=== PATIENT | female | born 1955 | race Caucasian/White ===

== ENCOUNTER → 2019-08-11 13:27 | Outpatient (BNVA) | payer MEDICARE, OTHER, SELFPAY | PROVIDERS: PCP Nurse Practitioner Family; Visit Provider Internal Medicine Rheumatology | DX: M06.09 Rheumatoid arthritis without rheumatoid factor, multiple sites (principal); Z79.899 Other long term (current) drug therapy; M19.90 Unspecified osteoarthritis, unspecified site; J44.9 Chronic obstructive pulmonary disease, unspecified; M47.812 Spondylosis without myelopathy or radiculopathy, cervical region; M47.816 Spondylosis without myelopathy or radiculopathy, lumbar region; Z87.891 Personal history of nicotine dependence | CPT/HCPCS: 99214 ==

== ENCOUNTER 2019-12-12 08:57 | Outpatient (CLI) | payer MEDICARE, OTHER, SELFPAY ==
--- NOTE | 2019-12-12 09:07 | MM_ITS ---
WS: [id number] BILATERAL DIGITAL SCREENING MAMMOGRAPHY WITH CAD CLINICAL INFORMATION: SCREEN HISTORY: Screening mammogram. No current complaints. COMPARISON: [id number] TECHNIQUE: Bilateral CC and MLO views. FINDINGS: The breasts are composed of heterogeneous fibroglandular density tissue, which can limit the detectio n of small underlying mass lesions. No suspicious mass, asymmetry, calcifications, or architectural d istortion. No evidence of malignancy. MM/[place] [id number] IMPRESSION: BI-RADS: 1-Negative FOLLOW UP: 1 Year Follow-up Recommend return to annual screening mammography.
== END 2019-12-12 08:58 | disposition home or self-care (01) ==
LOC: RADSHAW 09:02
PROVIDERS: PCP Nurse Practitioner Family; Visit Provider Nurse Practitioner Family
DX: Z12.31 Encounter for screening mammogram for malignant neoplasm of breast (principal)
CPT/HCPCS: 77067

== ENCOUNTER → 2020-01-09 10:47 | Outpatient (BNVA) | payer MEDICARE, OTHER, SELFPAY | PROVIDERS: PCP Nurse Practitioner Family; Visit Provider Internal Medicine Rheumatology | DX: M06.09 Rheumatoid arthritis without rheumatoid factor, multiple sites (principal); Z79.899 Other long term (current) drug therapy; Z78.0 Asymptomatic menopausal state; J44.9 Chronic obstructive pulmonary disease, unspecified; Z87.891 Personal history of nicotine dependence | CPT/HCPCS: 99214 ==

== ENCOUNTER → 2020-04-02 13:58 | Outpatient (BNVA) | payer MEDICARE, OTHER, SELFPAY | PROVIDERS: PCP Nurse Practitioner Family; Visit Provider Nurse Practitioner Family | DX: Z20.828 Contact with and (suspected) exposure to other viral communicable diseases (principal); J06.9 Acute upper respiratory infection, unspecified | CPT/HCPCS: 87635 ==

== ENCOUNTER → 2020-04-17 09:01 | Outpatient (BNVA) | payer OTHER, SELFPAY | PROVIDERS: PCP Nurse Practitioner Family; Visit Provider Internal Medicine Rheumatology | DX: M06.09 Rheumatoid arthritis without rheumatoid factor, multiple sites (principal); Z79.899 Other long term (current) drug therapy; J44.9 Chronic obstructive pulmonary disease, unspecified; K21.9 Gastro-esophageal reflux disease without esophagitis; Z87.891 Personal history of nicotine dependence | CPT/HCPCS: 99214 ==

== ENCOUNTER → 2020-07-30 08:49 | Outpatient (BNVA) | payer OTHER, SELFPAY | PROVIDERS: PCP Nurse Practitioner Family; Visit Provider Internal Medicine Rheumatology | DX: M06.09 Rheumatoid arthritis without rheumatoid factor, multiple sites (principal); Z79.899 Other long term (current) drug therapy; K21.9 Gastro-esophageal reflux disease without esophagitis; M15.9 Polyosteoarthritis, unspecified; M47.892 Other spondylosis, cervical region; M47.896 Other spondylosis, lumbar region; J44.9 Chronic obstructive pulmonary disease, unspecified; Z87.891 Personal history of nicotine dependence | CPT/HCPCS: 99214 ==

== ENCOUNTER → 2020-11-28 08:49 | Outpatient (BNVA) | payer OTHER, SELFPAY | PROVIDERS: PCP Nurse Practitioner Family; Visit Provider Internal Medicine Rheumatology | DX: M06.09 Rheumatoid arthritis without rheumatoid factor, multiple sites (principal); M15.9 Polyosteoarthritis, unspecified; M47.892 Other spondylosis, cervical region; M47.896 Other spondylosis, lumbar region; Z79.899 Other long term (current) drug therapy; K21.9 Gastro-esophageal reflux disease without esophagitis; J44.9 Chronic obstructive pulmonary disease, unspecified; Z71.89 Other specified counseling; Z87.891 Personal history of nicotine dependence | CPT/HCPCS: 99214 ==

== ENCOUNTER → 2020-12-18 09:30 | Outpatient (BNVA) | payer SELFPAY | PROVIDERS: PCP Dermatology; Visit Provider Dermatology | DX: Z01.89 Encounter for other specified special examinations (principal) ==

== ENCOUNTER 2020-12-19 09:55 | Outpatient (CLI) | payer MEDICARE, OTHER, SELFPAY ==
--- NOTE | 2020-12-19 10:03 | MM_ITS ---
WS: [id number] Bilateral screening mammograms, 12/19/2020 Comparison: 12/12/2019, 12/03/2018, 10/20/2017, 09/28/2015, 09/02/2013, 08/27/2012, 07/25/2011, 07/17/2010, 2009, 11/08/2008, 09/26/2014, 09/12/2014, 09/02/2013, 08/27/2012, 07/25/2011, 07/17/2010, 07/06/2009, 11/08/2008 , 08/10/2008, 07/19/2008, 07/04/2008, 06/04/2007, 12/29/2005. Clinical Data: SCREENING Findings: The breast parenchymal pattern shows heterogeneous density. No spiculated masses or clustered calcif ications are seen. There are no secondary signs of carcinoma. MM/[place] [id number] Impression: 1. Negative bilateral mammogram unchanged. 2. Recommend annual screening mammograms. BIRADS: 1-Negative FOLLOW UP: 1 Year Follow-up The CAD broadcast checker was used.
== END 2020-12-19 09:56 | disposition home or self-care (01) ==
LOC: RADSHAW 10:01
PROVIDERS: PCP Nurse Practitioner Family; Visit Provider Nurse Practitioner Family
DX: Z12.31 Encounter for screening mammogram for malignant neoplasm of breast (principal)
CPT/HCPCS: 77067

== ENCOUNTER → 2021-04-01 09:33 | Outpatient (BNVA) | payer MEDICARE, OTHER, SELFPAY | PROVIDERS: PCP Nurse Practitioner Family; Visit Provider Internal Medicine Rheumatology | DX: M06.09 Rheumatoid arthritis without rheumatoid factor, multiple sites (principal); Z79.899 Other long term (current) drug therapy; M15.9 Polyosteoarthritis, unspecified; K21.9 Gastro-esophageal reflux disease without esophagitis; J44.9 Chronic obstructive pulmonary disease, unspecified; Z71.89 Other specified counseling; Z87.891 Personal history of nicotine dependence | CPT/HCPCS: 99214 ==

== ENCOUNTER → 2021-07-12 09:13 | Outpatient (BNVA) | payer MEDICARE, OTHER, SELFPAY | PROVIDERS: PCP Nurse Practitioner Family; Visit Provider Internal Medicine | DX: I49.3 Ventricular premature depolarization (principal); E78.2 Mixed hyperlipidemia; I10 Essential (primary) hypertension; Z87.891 Personal history of nicotine dependence | CPT/HCPCS: 99213; 99214 ==

== ENCOUNTER → 2021-07-19 09:00 | Outpatient (BNVA) | payer MEDICARE, OTHER, SELFPAY | PROVIDERS: PCP Nurse Practitioner Family; Visit Provider Internal Medicine Rheumatology | DX: M06.09 Rheumatoid arthritis without rheumatoid factor, multiple sites (principal); Z79.899 Other long term (current) drug therapy; M15.9 Polyosteoarthritis, unspecified; K21.9 Gastro-esophageal reflux disease without esophagitis; J44.9 Chronic obstructive pulmonary disease, unspecified; Z71.89 Other specified counseling | CPT/HCPCS: 99214 ==

== ENCOUNTER → 2021-11-14 09:22 | Outpatient (BNVA) | payer MEDICARE, OTHER, SELFPAY | PROVIDERS: PCP Nurse Practitioner Family; Visit Provider Internal Medicine Rheumatology | DX: M06.09 Rheumatoid arthritis without rheumatoid factor, multiple sites (principal); Z79.899 Other long term (current) drug therapy; Z71.89 Other specified counseling; M15.9 Polyosteoarthritis, unspecified; M47.892 Other spondylosis, cervical region; M47.896 Other spondylosis, lumbar region; K21.9 Gastro-esophageal reflux disease without esophagitis; J44.9 Chronic obstructive pulmonary disease, unspecified | CPT/HCPCS: 99214 ==

== ENCOUNTER 2022-01-31 11:23 | Outpatient (CLI) | payer MEDICARE, OTHER, SELFPAY ==
--- NOTE | 2022-01-31 11:31 | MM_ITS ---
WS: [email or web address] VIEWS: MLO and CC views both breasts. 3D digital tomosynthesis is also included in this exam. Comparison made with prior exam of 09/28/2015, 10/20/2017, 12/03/2018, 12/12/2019, 12/19/2020.. Findings: There was no sign of mass, architectural distortion or suspicious calcification in either breast. Sc attered fibroglandular densities MM/[place] [id number] Impression: BI-RADS: 2-Benign FOLLOW-UP: 1 Year Follow-up This mammogram was also analyzed by the Computer Aided Detection System R2 Imag e Art Tracer.
== END 2022-01-31 11:24 | disposition home or self-care (01) ==
LOC: RAD 11:23
PROVIDERS: PCP Nurse Practitioner Family; Visit Provider Nurse Practitioner Family
DX: Z12.31 Encounter for screening mammogram for malignant neoplasm of breast (principal)
CPT/HCPCS: 77063; 77067

== ENCOUNTER → 2022-02-18 12:57 | Outpatient (BNVA) | payer MEDICARE, SELFPAY | PROVIDERS: PCP Nurse Practitioner Family; Visit Provider Internal Medicine Rheumatology | DX: M06.09 Rheumatoid arthritis without rheumatoid factor, multiple sites (principal); Z79.899 Other long term (current) drug therapy; Z71.89 Other specified counseling; M15.9 Polyosteoarthritis, unspecified; K21.9 Gastro-esophageal reflux disease without esophagitis; J44.9 Chronic obstructive pulmonary disease, unspecified; M47.892 Other spondylosis, cervical region; M47.896 Other spondylosis, lumbar region | CPT/HCPCS: 99214 ==

== ENCOUNTER → 2022-05-28 13:20 | Outpatient (BNVA) | payer MEDICARE, SELFPAY | PROVIDERS: PCP Nurse Practitioner Family; Visit Provider Internal Medicine Rheumatology | DX: M06.09 Rheumatoid arthritis without rheumatoid factor, multiple sites (principal); Z79.899 Other long term (current) drug therapy; Z71.89 Other specified counseling; M47.892 Other spondylosis, cervical region; M47.896 Other spondylosis, lumbar region; K21.9 Gastro-esophageal reflux disease without esophagitis; K22.10 Ulcer of esophagus without bleeding | CPT/HCPCS: 99214 ==

== ENCOUNTER → 2022-09-03 12:55 | Outpatient (BNVA) | payer MEDICARE, SELFPAY | PROVIDERS: PCP Nurse Practitioner Family; Visit Provider Internal Medicine Rheumatology | DX: M06.09 Rheumatoid arthritis without rheumatoid factor, multiple sites (principal); Z71.89 Other specified counseling; Z79.899 Other long term (current) drug therapy | CPT/HCPCS: 99214 ==

== ENCOUNTER → 2022-11-11 12:35 | Outpatient (BNVA) | payer MEDICARE, SELFPAY | PROVIDERS: PCP Nurse Practitioner Family; Visit Provider Internal Medicine Cardiovascular Disease | DX: I49.3 Ventricular premature depolarization (principal); I10 Essential (primary) hypertension; E78.2 Mixed hyperlipidemia; Z87.891 Personal history of nicotine dependence | CPT/HCPCS: 99213 ==

== ENCOUNTER → 2022-12-17 13:14 | Outpatient (BNVA) | payer MEDICARE, SELFPAY | PROVIDERS: PCP Nurse Practitioner Family; Visit Provider Internal Medicine Rheumatology | DX: I49.3 Ventricular premature depolarization (principal); M06.09 Rheumatoid arthritis without rheumatoid factor, multiple sites; Z79.899 Other long term (current) drug therapy; Z71.89 Other specified counseling | CPT/HCPCS: 99214 ==

== ENCOUNTER 2023-02-17 13:30 | Outpatient (CLI) | payer MEDICARE, SELFPAY ==
--- NOTE | 2023-02-17 13:34 | MM_ITS ---
WS: [email or web address] BILATERAL 3D TOMOSYNTHESIS DIGITAL SCREENING MAMMOGRAPHY WITH CAD CLINICAL INFORMATION: SCREENING HISTORY: Screening mammogram. No current complaints. COMPARISON: 2021 TECHNIQUE: Bilateral CC and MLO views. FINDINGS: Scattered fibroglandular densities bilaterally. No suspicious focal mass, asymmetry, calcifications, or architectural distortion. No evidence of malignancy. IMPRESSION: MM/[place] [id number] BI-RADS: 1-Negative FOLLOW UP: 1 Year Follow-up Recommend return to annual screening mammography.
== END 2023-02-17 13:31 | disposition home or self-care (01) ==
LOC: RAD 13:30
PROVIDERS: PCP Nurse Practitioner Family; Visit Provider Nurse Practitioner Family
DX: Z12.31 Encounter for screening mammogram for malignant neoplasm of breast (principal)
CPT/HCPCS: 77063; 77067

== ENCOUNTER → 2023-04-15 14:15 | Outpatient (BNVA) | payer MEDICARE, SELFPAY | PROVIDERS: PCP Nurse Practitioner Family; Visit Provider Internal Medicine Rheumatology | DX: Z79.899 Other long term (current) drug therapy (principal); M06.09 Rheumatoid arthritis without rheumatoid factor, multiple sites; Z71.89 Other specified counseling | CPT/HCPCS: 99214 ==

== ENCOUNTER → 2023-11-03 14:15 | Outpatient (BNVA) | payer MEDICARE, SELFPAY | PROVIDERS: PCP Nurse Practitioner Family; Visit Provider Internal Medicine | DX: I49.3 Ventricular premature depolarization (principal); E78.2 Mixed hyperlipidemia; I10 Essential (primary) hypertension; Z87.891 Personal history of nicotine dependence | CPT/HCPCS: 99213 ==

== ENCOUNTER 2023-12-02 11:21 | Outpatient (CLI) | payer MEDICARE, SELFPAY ==
--- NOTE | 2023-12-02 11:15 | CT_ITS ---
WS: [email or web address] LDCT LUNG CANCER SCREENING HISTORY: Z87.891 - Personal history of nicotine dependence TECHNIQUE: Axial imaging performed from the apices to 1 cm below the costophrenic angles. Coronal and sagittal reformats are submitted with axial MIP series. All CT scans at [facility] use at least one of these dose optimization techniques: automated exposure control; mA and/or kV adjustment per patient size (includes targeted exams where dose is matched to clinical indication); or iterativ e reconstruction. DLP: 43.12 mGy.cm DIvol: Mean CTDIvol: 0.80 (mGy) COMPARISON: None available. Diagnostic quality: Satisfactory Lungs: Hyperexpanded lungs. Irregular nodule measuring 11 x 8 mm medial RIGHT upper lobe, best seen o n image 107 of series 4. Additional biapical pleural thickening. There is a more focal 5 mm nodule po sterior RIGHT apex. There are additional bilateral micronodules. RIGHT perifissural nodule. No endobr onchial lesions. Heart: Normal size heart with no pericardial effusion.. Other findings: On this unenhanced exam no adenopathy is identified. Hilar lymph nodes be difficult t o visualize. Absent or atrophic RIGHT thyroid. Small hiatal hernia. Increase in thoracic kyphosis. De generative spondylosis. CT/CT lung screening [id number] IMPRESSION: LUNG-RADS: 4A-Probably Suspicious FOLLOW UP: 3 Month LDCT OTHER FINDINGS (S MODIFIER): None.
== END 2023-12-02 11:22 | disposition home or self-care (01) ==
LOC: RAD 11:21
PROVIDERS: PCP Nurse Practitioner Family; Visit Provider Nurse Practitioner Family
DX: Z12.2 Encounter for screening for malignant neoplasm of respiratory organs (principal); Z87.891 Personal history of nicotine dependence; J98.4 Other disorders of lung; R91.8 Other nonspecific abnormal finding of lung field; M40.204 Unspecified kyphosis, thoracic region
CPT/HCPCS: 71271

== ENCOUNTER → 2024-01-25 11:15 | Outpatient (BNVA) | payer MEDICARE, SELFPAY | PROVIDERS: PCP Nurse Practitioner Family; Visit Provider Internal Medicine Rheumatology | DX: Z79.899 Other long term (current) drug therapy (principal); M06.09 Rheumatoid arthritis without rheumatoid factor, multiple sites; Z71.89 Other specified counseling | CPT/HCPCS: 99214 ==

== ENCOUNTER → 2024-03-09 13:06 | Outpatient (BNVA) | payer MEDICARE, SELFPAY | PROVIDERS: PCP Nurse Practitioner Family; Visit Provider Nurse Practitioner Family | DX: Z79.899 Other long term (current) drug therapy (principal) | CPT/HCPCS: 80307 ==

== ENCOUNTER 2024-03-31 13:40 | Outpatient (CLI) | payer MEDICARE, SELFPAY ==
--- NOTE | 2024-03-31 13:40 | MM_ITS ---
WS: [email or web address] BILATERAL SCREENING DIGITAL TOMOSYNTHESIS MAMMOGRAM WITH CAD HISTORY: Z12.39 - Encounter for other screening for malignant neop... COMPARISON: 02/17/2023, 01/31/2022 Bilateral CC and MLO views with tomosynthesis and synthetic mammography submitted. Computer aided det ection analyzed. Breast composition: There are scattered areas of fibroglandular density. No suspicious masses, microc alcifications or architectural distortion. MM/MM scr BI tomosynthesis [id number] IMPRESSION: BI-RADS: 1 - Negative. FOLLOW UP: 1 Year Follow-up
== END 2024-03-31 13:41 | disposition home or self-care (01) ==
PROVIDERS: PCP Nurse Practitioner Family; Visit Provider Nurse Practitioner Family
DX: Z12.31 Encounter for screening mammogram for malignant neoplasm of breast (principal); R92.323 Mammographic fibroglandular density, bilateral breasts
CPT/HCPCS: 77063; 77067

== ENCOUNTER 2024-04-19 09:30 | Outpatient (CLI) | payer MEDICARE, SELFPAY ==
--- NOTE | 2024-04-19 09:30 | CT_ITS ---
WS: [email or web address] CT chest w con* [id number] HISTORY: R91.1 - Solitary pulmonary nodule TECHNIQUE: Axial imaging performed through the thorax. Coronal and sagittal reformats are submitted. All CT scans at [facility] use at least one of these dose optimization techniques: automated exposure control; mA and/or kV adjustment per patient size (includes targeted exams where dose is mat ched to clinical indication); or iterative reconstruction. CONTRAST: Omnipaque 350; 100 mL IV. DLP: 204.74 mGy.cm COMPARISON: 12/02/2023 Lungs and central airway: Mild pulmonary hyperexpansion. There has been interval change in appearance of the lungs and nodules since 12/02/2023. Decrease in size and consolidation of the nodule described in the medial RIGHT upper lobe. Some of the nodules have resolved since the prior study and new nodul es have developed. There is a new cavitary nodule measuring 5 x 9 mm RIGHT upper lobe. New LEFT upper lobe pulmonary nodules measuring up to 6 mm. New tree-in-bud airspace disease inferior segment RIGHT upper lobe. Stable 3 mm nodule RIGHT lower lobe. New 6 mm nodule LEFT lung base. Pleura: Normal. No pleural effusion. Heart and pericardium: Normal size heart with no pericardial effusion. Mediastinum and enma: Enlarged RIGHT hilar lymph node 1.7 cm. There are a few smaller mediastinal and hilar lymph nodes. Asymmetric esophageal wall thickening at the level of the tracee. Vessels: Normal size aortic and pulmonary artery. No coronary artery calcifications. Chest wall and lower neck: No soft tissue masses. Upper abdomen: Small hiatal hernia. No adrenal mass. Visualized liver is normal. Osseous structures: Thoracic spondylosis. CT/CT chest w con* [id number] IMPRESSION: 1. Some the nodules described on the prior exam from 12/02/2023 have resolved wh ile others have improved. The most concerning nodule in the medial RIGHT upper lobe has decreased in size and with less consolidation. 2. There are additional new pulmonary nodules with the most concerning being a cavitary nodule in the RIGHT upper lobe measuring 5 x 9 mm. 3. New tree-in-bud airspace disease RIGHT upper lobe. Favor infectious etiolog y. 4. Enlarged RIGHT hilar lymph node at 1.7 cm. 5. Asymmetric esophageal wall thickening at the level of the tracee. Esophagit is versus neoplasm. Consider endoscopy for further evaluation. Recommendation: Follow-up chest CT with IV contrast in 3 months after treatment for pneumonia.
[2024-04-19 10:15] LABS: Blood Urea Nitrogen 12 mg/dL (8-23); Glomerular Filtration Rate 83.2 mL/min (90-130)
[2024-04-19] MEDS: iohexol 350 mg/mL 500 mL Btl (per mL) IV (10:20)
== END 2024-04-19 09:47 | disposition home or self-care (01) ==
PROVIDERS: PCP Nurse Practitioner Family; Visit Provider Nurse Practitioner Family
DX: R91.8 Other nonspecific abnormal finding of lung field (principal); R59.0 Localized enlarged lymph nodes; R93.89 Abnormal findings on diagnostic imaging of other specified body structures; K44.9 Diaphragmatic hernia without obstruction or gangrene; M47.894 Other spondylosis, thoracic region
CPT/HCPCS: 71260; 82565; 84520

== ENCOUNTER → 2024-05-09 14:22 | Outpatient (BNVA) | payer MEDICARE, SELFPAY | PROVIDERS: PCP Nurse Practitioner Family; Visit Provider Surgery | DX: K22.89 Other specified disease of esophagus (principal); K21.9 Gastro-esophageal reflux disease without esophagitis; R10.13 Epigastric pain | CPT/HCPCS: 99204 ==

== ENCOUNTER 2024-06-01 06:36 | Day surgery (SDC) | payer MEDICARE, SELFPAY ==
[2024-06-01 06:50] VITALS: BP 137/61; PULSE 81; RESP 17; TEMP 36.1; O2SAT 96; BMI 23.1
--- NOTE | 2024-06-01 07:04 | W.PM.OPSUD ---
Surgery/Procedure H&P Update DATE OF PROCEDURE: June 01, 2024 DATE H&P PERFORMED: 05/09/24 H&P UPDATE INFORMATION: I have reviewed H&P completed within last 30 days, I have examined patient prior to procedure and No changes to prior documentation PLANNED PROCEDURE: Operation Date: 06/01/24 07:30 Proposed Procedures p EGD [id number], R10.13(Not Applicable) - Jovan Meeks, DO
--- NOTE | 2024-06-01 07:39 | ANES.PREANE2 ---
Pre-Anesthetic Assessment Height/Weight: Height 5 ft 7 in Weight 148 lb Temp Pulse Resp BP Pulse Ox O2 Del Method 97.0 F L 81 17 137/61 96 Room Air 06/01/24 06:50 06/01/24 06:50 06/01/24 06:50 06/01/24 06:50 06/01/24 06:50 06/01/24 06:50 Preop Diagnosis: GERD Operation Date: 06/01/24 07:30 Proposed Procedures p EGD [id number], R10.13(Not Applicable) - Jovan Meeks, DO Was Beta Jluis taken within 24 hours: Yes Was Clonidine taken within 24 hours: N/A Last intake: Intake Last Liquid Date 05/31/24 Last Liquid Time 21:00 Last Solid Date 05/31/24 Last Solid Time 20:00 Social No alcohol and No tobacco Quit smoking 10 years ago Exam alert, oriented x 3, clear to auscultation bilaterally and regular rate & rhythm Airway Submandibular: within normal limits Cervical ROM: within normal limits Mallampati: Class II Dentition: full Anesthetic Plan ASA status: 2 Anesthesia: MAC Other: No prior issues with anesthesia NPO since yesterday evening History of GERD on omeprazole and Protonix Quit smoking 10 years ago, COPD noted Seronegative rheumatoid arthritis Hypertension on atenolol METs greater than 4 Plan for MAC anesthetic Medications/Allergies Home Medications ?Medication ?Instructions ?Recorded ?Confirmed ?Last Taken ?Type ascorbate calcium (vitamin C) 500 1 gm PO DAILY 04/05/19 06/01/24 05/31/24 History mg tablet multivitamin (Daily Multi-Vitamin 1 tab PO QAM 04/05/19 06/01/24 05/31/24 History tablet) calcium carbonate 600 mg PO DAILY 07/30/20 06/01/24 05/31/24 History fluticasone propionate 50 2 spray intranasal DAILY #16 grams 05/21/22 06/01/24 1 Week Ago Rx mcg/actuation nasal ~05/23/24 spray,suspension (Flonase Allergy Relief) leflunomide 20 mg tablet 20 mg PO DAILY #90 tabs 01/25/24 06/01/24 05/31/24 Rx sulfasalazine 500 mg tablet 1 g (2 x 500 mg) PO BID #360 tabs 01/25/24 06/01/24 05/31/24 Rx tramadol 50 mg tablet 50 mg PO BID PRN pain 30 days #60 03/26/24 06/01/24 05/31/24 Rx tabs pantoprazole 40 mg tablet,delayed 40 mg PO BID 6 weeks #84 tabs 05/09/24 06/01/24 05/31/24 Rx release (Protonix) atenolol 25 mg tablet 25 mg PO DAILY 05/30/24 06/01/24 05/31/24 History atorvastatin 20 mg tablet 20 mg PO DAILY 05/30/24 06/01/24 05/31/24 History loratadine 10 mg tablet 10 mg PO DAILY 05/30/24 06/01/24 05/31/24 History omeprazole 20 mg capsule,delayed 20 mg PO DAILY 05/30/24 06/01/24 Unknown History release Allergies Allergy/AdvReac Type Severity Reaction Status Date / Time Penicillins Allergy Mild ALGY-Rash Verified 06/01/24 06:48 PFSH Anesthesia Medical History Allergic rhinitis COVID-19 vaccine administered Encounter for osteoporosis screening in asymptomatic postmenopausal patient Migraine headache Mixed hyperlipidemia Suppression of immune system subtherapeutic Immunization counseling High risk medication use Generalized osteoarthritis of multiple sites Chronic low back pain Seronegative rheumatoid arthritis of multiple sites PVCs (premature ventricular contractions) Essential (primary) hypertension Hyperlipidemia Arthritis Surgical History Hx of lumpectomy left H/O: hysterectomy total Hx of tubal ligation History of bilateral carpal tunnel release Hx of partial thyroidectomy Hx of colonoscopy (~2017) Family History Mother Cancer breast Father Pancreatic tumor Other Hypertension Denies family history of Rheumatoid arthritis Diabetes Systemic lupus erythematosus (SLE) in adult Social History Smoking and tobacco/nicotine status: never used tobacco/nicotine Quit status (tobacco/nicotine): has quit using Year quit tobacco: 2013 Alcohol intake: never Substance/Drug Use: never Lives independently: Yes Household members: spouse Marital status: Current occupational status: disabled Current gender identity: Female Data Anesthesia Cardiac Studies: No Data to Display
[2024-06-01 07:54] VITALS: BP 116/49; PULSE 71; RESP 15; TEMP 36.1; O2SAT 97
[2024-06-01 08:09] VITALS: BP 121/57; PULSE 75; RESP 16; TEMP 36.2; O2SAT 96
--- NOTE | 2024-06-01 08:17 | ANE.PACU2 ---
Inpatient post-anesthesia follow up: Airway intact: Yes Vital signs: Temperature 97.2 F Pulse Rate 75 Respiratory Rate 16 Blood Pressure 121/57 Pulse Oximetry 96 Oxygen Delivery Me thod Room Air Oxygen Flow Rate Fraction of Inspir ed Oxygen Hydration adequate: Yes Nausea and vomiting: No Pain level: 1 Mental status: Baseline
== END 2024-06-01 08:18 | disposition home or self-care (01) ==
PROVIDERS: PCP Nurse Practitioner Family; Visit Provider Surgery
PROC: 0DJ08ZZ Inspection of Upper Intestinal Tract, Via Natural or Artificial Opening Endoscopic (ICD-10-PCS; principal; 2024-06-01 07:30)
DX: K21.00 Gastro-esophageal reflux disease with esophagitis, without bleeding (principal); K29.50 Unspecified chronic gastritis without bleeding; M06.00 Rheumatoid arthritis without rheumatoid factor, unspecified site; J44.9 Chronic obstructive pulmonary disease, unspecified; E78.2 Mixed hyperlipidemia; I10 Essential (primary) hypertension; Z87.891 Personal history of nicotine dependence; Z79.899 Other long term (current) drug therapy; Z88.0 Allergy status to penicillin; Z90.710 Acquired absence of both cervix and uterus; Z87.11 Personal history of peptic ulcer disease; K22.89 Other specified disease of esophagus
CPT/HCPCS: 43239; 88305; 88342; J2704

== ENCOUNTER → 2024-06-16 10:53 | Outpatient (BNVA) | payer MEDICARE, SELFPAY | PROVIDERS: PCP Nurse Practitioner Family; Visit Provider Student in an Organized Health Care Education/Training Program | DX: Z09 Encounter for follow-up examination after completed treatment for conditions other than malignant neoplasm (principal) | CPT/HCPCS: 99213 ==

== ENCOUNTER 2024-06-21 13:34 | Outpatient (CLI) | payer MEDICARE, SELFPAY ==
--- NOTE | 2024-06-21 14:03 | XR_ITS ---
WS: [email or web address] Exam: XR knee RT 3V* [id number] Date/Time of Exam: 06/21/2024 2:19 PM Reason For Exam: M25.561 - Pain in right knee No fracture noted. The joint compartments are relatively well-maintained. Small marginal osteophytes along the medial compartment. No joint effusion. Normal soft tissues. XR/XR knee RT 3V* [id number] IMPRESSION: 1. No fracture or other significant finding.
--- NOTE | 2024-06-21 14:03 | XR_ITS ---
WS: [email or web address] Exam: XR lumbar spine 2-3V* [id number] Date/Time of Exam: 06/21/2024 2:19 PM Reason For Exam: M54.50 - Low back pain, unspecified Comparison 11/30/2013. Advanced disc degeneration at L5-S1 and L2-3. Mild spondylosis. Slight dextroscoliosis. No acute fracture. Degenerative changes in the L5 vertebral body. XR/XR lumbar spine 2-3V* [id number] IMPRESSION: 1. No fracture or malalignment. 2. Degenerative changes at L5-S1 and L2-3 as noted above. 3. There is some question whether there might be 6 nonrib-bearing lumbar verte bra. This should be taken in consideration before any surgical planning.
== END 2024-06-21 13:35 | disposition home or self-care (01) ==
LOC: RAD 13:37
PROVIDERS: PCP Nurse Practitioner Family; Visit Provider Nurse Practitioner Family
DX: M51.379 Other intervertebral disc degeneration, lumbosacral region without mention of lumbar back pain or lower extremity pain (principal); G89.29 Other chronic pain; M25.761 Osteophyte, right knee; M51.369 Other intervertebral disc degeneration, lumbar region without mention of lumbar back pain or lower extremity pain; M47.896 Other spondylosis, lumbar region; R93.7 Abnormal findings on diagnostic imaging of other parts of musculoskeletal system
CPT/HCPCS: 72100; 73562

== ENCOUNTER → 2024-07-18 10:51 | Outpatient (BNVA) | payer MEDICARE, SELFPAY | PROVIDERS: PCP Nurse Practitioner Family; Visit Provider Internal Medicine Rheumatology | DX: M06.09 Rheumatoid arthritis without rheumatoid factor, multiple sites (principal); Z79.899 Other long term (current) drug therapy; Z71.89 Other specified counseling | CPT/HCPCS: 99214 ==

== ENCOUNTER 2024-07-22 12:58 | Outpatient (CLI) | payer MEDICARE, SELFPAY ==
--- NOTE | 2024-07-22 13:00 | CT_ITS ---
WS: [email or web address] CT chest w con* [id number] HISTORY: R91.1 - Solitary pulmonary nodule TECHNIQUE: Axial imaging performed through the thorax. Coronal and sagittal reformats are submitted. All CT scans at [facility] use at least one of these dose optimization techniques: automated exposure control; mA and/or kV adjustment per patient size (includes targeted exams where dose is matched to clinical indication); or iterative reconstruction. CONTRAST: Omnipaque 350; 100 mL IV. DLP: 222.11 mGy.cm COMPARISON: 04/19/2024, 12/02/2023, Lungs and central airway: Biapical pleural thickening and fibrosis. Pleural nodules at the RIGHT apex are stable. Reidentified is a ovoid nodule measuring 8 x 4 mm in the central RIGHT upper lobe, new since 12/02/2023 but appears slightly more consolidated as compared to 04/19/2024. No change in the 4 mm nodule LEFT upper lobe, image 19 of series 4. Subsolid opacification in the medial RIGHT upper lobe no change since the most recent exam. Chronic areas of tree-in-bud airspace disease RIGHT upper lobe. No change in the lingular nodule. No change in the RIGHT lower lobe pulmonary nodules. Pleura: Normal. No pleural effusion. Heart and pericardium: Normal size heart with no pericardial effusion. Mediastinum and enma: No change in the indeterminate RIGHT hilar lymph nodes. Vessels: Normal size aortic and pulmonary artery. No coronary artery calcifications. Continued asymmetric esophageal wall thickening at the level of the tracee. Chest wall and lower neck: RIGHT thyroid is not identified. Normal appearance of the LEFT thyroid. LEFT axillary lymph node measures 1.4 cm and has slightly increased in size since 04/19/2024. Upper abdomen: No adrenal mass. Small hiatal hernia. Osseous structures: Mild thoracic spondylosis. CT/CT chest w con* [id number] IMPRESSION: 1. Ovoid nodule in the RIGHT upper lobe measuring 8 x 4 mm is just slightly mo re consolidated as compared to the most recent study of 04/19/2024. Recommend co ntinued close follow-up. PET/CT may be of benefit at this time. Otherwise chest CT follow-up in 3 to 4 months recommended with IV contrast. 2. The remaining scattered pulmonary nodules and tree-in-bud airspace disease has not progressed. 3. No change in the indeterminate mediastinal and hilar lymph nodes. 4. LEFT axillary lymph node now measures 1.4 cm which is slightly increased in size. 5. Continued asymmetric esophageal thickening as seen before. Most significant at the tracee. If endoscopy has not been performed this should be considered.
[2024-07-22 13:29] LABS: Blood Urea Nitrogen 14 mg/dL (8-23); Glomerular Filtration Rate 71.3 mL/min (90-130)
[2024-07-22] MEDS: iohexol 350 mg/mL 500 mL Btl (per mL) IV (13:33)
== END 2024-07-22 12:59 | disposition home or self-care (01) ==
LOC: RAD 12:59
PROVIDERS: PCP Nurse Practitioner Family; Visit Provider Nurse Practitioner Family
DX: R91.8 Other nonspecific abnormal finding of lung field (principal); R59.0 Localized enlarged lymph nodes; K22.89 Other specified disease of esophagus; J92.9 Pleural plaque without asbestos; J84.10 Pulmonary fibrosis, unspecified; K44.9 Diaphragmatic hernia without obstruction or gangrene; M47.894 Other spondylosis, thoracic region
CPT/HCPCS: 71260; 82565; 84520

== ENCOUNTER → 2024-07-29 11:20 | Outpatient (BNVA) | payer MEDICARE, SELFPAY | PROVIDERS: PCP Nurse Practitioner Family; Visit Provider Nurse Practitioner Family | DX: M54.16 Radiculopathy, lumbar region (principal); G89.29 Other chronic pain | CPT/HCPCS: 99214 ==

== ENCOUNTER → 2024-08-04 13:44 | Outpatient (BNVA) | payer MEDICARE, SELFPAY | PROVIDERS: PCP Nurse Practitioner Family; Visit Provider Nurse Practitioner Family | DX: M79.18 Myalgia, other site (principal); M54.16 Radiculopathy, lumbar region; G89.29 Other chronic pain | CPT/HCPCS: 20553; 99214; J1010; J3490 ==

== ENCOUNTER → 2024-08-18 13:19 | Outpatient (BNVA) | payer MEDICARE, SELFPAY | PROVIDERS: PCP Nurse Practitioner Family; Visit Provider Nurse Practitioner Family | DX: M54.16 Radiculopathy, lumbar region (principal); G89.29 Other chronic pain | CPT/HCPCS: 99213 ==

== ENCOUNTER → 2024-09-29 10:59 | Outpatient (BNVA) | payer MEDICARE, SELFPAY | PROVIDERS: PCP Nurse Practitioner Family; Visit Provider Nurse Practitioner Family | DX: M54.16 Radiculopathy, lumbar region (principal); G89.29 Other chronic pain | CPT/HCPCS: 99214 ==

== ENCOUNTER 2024-10-04 13:24 | Outpatient (CLI) | payer MEDICARE, SELFPAY ==
--- NOTE | 2024-10-04 13:45 | MR_ITS ---
WS: [email or web address] MRI LUMBAR SPINE WITH CONTRAST TECHNIQUE: Sagittal T1, T2 and STIR imaging. Axial T1 and T2 imaging. Post gadolinium imaging was obtained. CLINICAL INFORMATION: M54.16 - Radiculopathy, lumbar region. Low back pain and foot numbness for 1 year not otherwise specified COMPARISON: None. FINDINGS: Mild lumbar curve. No acute compression. Disc desiccation with endplate degenerative changes worse at L2-3 with endplate sclerosis and edema. Anterior hypertrophic changes at this level. Disc bulging worse at L2-3 with moderate central canal stenosis. L1-L2: Mild annular bulging. Mild facet arthropathy. Spinal canal and foramen are patent. L2-L3: Broad-based disc protrusion impinges the RIGHT greater than LEFT subarticular recess with moderate central canal stenosis. Moderate facet arthropathy with ligamentum flavum hypertrophy. Mild LEFT foraminal narrowing with a LEFT foraminal protrusion. Slight impingement on the exiting LEFT L2 nerv e root. Mild RIGHT foraminal narrowing. L3-L4: Mild annular bulging. Slight effacement of the ventral thecal sac. Moderate facet arthropathy. Foramen are patent. L4-L5: Grade 1 anterolisthesis. Mild disc bulging with moderate central canal stenosis. Impingement traversing L5 nerve roots bilaterally. RIGHT eccentric disc bulging slightly contacts the exiting RIGHT L4 nerve root. Moderate facet arthropathy with ligamentum flavum hypertrophy. L5-S1: Disc desiccation. Mild disc bulging with moderate facet arthropathy. Slight impingement on the LEFT subarticular recess and LEFT S1 nerve root. Foramen are patent. Visualized pelvic bony structures: Normal. Paravertebral soft tissues: Normal. No abnormal gadolinium enhancement. MR/MR lumbar spine wo/w con [id number] IMPRESSION: 1. Mild lumbar curve. No acute compression. 2. Advanced disc space narrowing L2-3 with endplate degenerative changes. Cent ral broad-based protrusion at this level impinges the RIGHT greater than LEFT s ubarticular recess with moderate central canal stenosis. 3. LEFT foraminal protrusion L2-3 slightly impinges the exiting LEFT L2 nerve root. 4. Moderate central canal stenosis L4-5 with slight anterolisthesis. Impingeme nt traversing L5 nerve roots. 5. Tiny LEFT subarticular disc bulging L5-S1 impinges the traversing LEFT S1 n erve root in the subarticular recess.
[2024-10-04] MEDS: gadobenate dimeglumine 20 mL vial 13 ML IV (14:06)
== END 2024-10-04 13:25 | disposition home or self-care (01) ==
LOC: RAD 13:25
PROVIDERS: PCP Nurse Practitioner Family; Visit Provider Nurse Practitioner Family
DX: M51.16 Intervertebral disc disorders with radiculopathy, lumbar region (principal); M48.062 Spinal stenosis, lumbar region with neurogenic claudication
CPT/HCPCS: 72158; A9577

== ENCOUNTER 2024-10-07 09:17 | Outpatient (CLI) | payer MEDICARE, SELFPAY ==
--- NOTE | 2024-10-07 09:00 | PETR_ITS ---
PROCEDURE INFORMATION: Exam: PET/CT Skull Base to Mid-thigh Exam date and time: 10/07/2024 10:02 AM Age: 68 years old Clinical indication: Abnormal findings; Solitary pulmonary nodule; Additional info: R91.1 - solitary pulmonary nodule LABS AND CLINICAL REPORTS: Glucose: 101 mg/dl Treatment strategy for malignancy (PET staging): Initial Staging (PI) TECHNIQUE: Imaging protocol: Following at least four-hour fasting and following the injection of radiopharmaceutical, low dose CT images were obtained. Then, PET images were obtained. Attenuation corrected images were constructed using the CT scan. Fused images of PET and CT were reviewed. The standardized uptake values (SUV) reported below are maximum values within a region of interest, expressed in gm/ml. Exam includes orbital meatal line to mid-thigh. SUV normalization method: BodyWeight Radiopharmaceutical: 11.24 mCi F-18 FDG (Fluorodeoxyglucose), IV. Time of imaging post radiopharmaceutical administration: 46 minutes Injection site: left ac COMPARISON: 1. CT chest w con* [id number] 07/22/2024 1:[address] chest w con* [id number] 04/19/2024 10:13 AM FINDINGS: Brain: Visualized brain has normal physiologic uptake. Pharynx: No abnormal uptake. Larynx: No abnormal uptake. Lungs, pleura and trachea: Developed FDG avid subpleural right posteromedial upper lobe nodule measuring 1 cm on axial image 67 showing SUV max 6.2. Interval aeration of stable non FDG avid 8 x 4 mm right upper lobe nodule on axial image 68. Multifocal right upper lobe tree-in-bud nodularity. Couple stable subcentimeter left upper lobe nodules below size threshold for accurate FDG assessment. Right lower lobe calcified granuloma. Heart: Normal physiologic uptake. Mediastinal space: No abnormal uptake. Liver: No abnormal uptake. Gallbladder and biliary ducts: No abnormal uptake. Pancreas: No abnormal uptake. Spleen: No abnormal uptake. Adrenal glands: No abnormal uptake. Kidneys and ureters: Normal physiologic uptake. Stomach and bowel: No abnormal uptake. Vasculature: No abnormal uptake. Lymph nodes: Low-level bilateral hilar uptake without discretely measurable lymph node, SUV max 3.4 on the right and SUV max 3.9 on the left. Lower level uptake at nonenlarged mediastinal lymph nodes with index subcarinal node showing SUV max 2.6. Calcified left hilar nodes in keeping with sequela of old granulomatous disease. Skeleton: No abnormal uptake in the visualized axial and appendicular skeleton. Degenerative change along the axial skeletal system. Soft tissues: No abnormal uptake in the visualized head, neck, chest, abdomen, pelvis, and extremities. METRICS: Mediastinal blood pool: SUV mean 1.9 Liver uptake: SUV mean 2.5 PET/PET skull to thigh INIT [id number] IMPRESSION: 1. 8 x 4 mm right upper lobe nodule of concern shows interval aeration and is non FDG avid favoring benignity. 2. Developed FDG avid 1 cm posteromedial right upper lobe subpleural nodule is likely inflammatory with adjacent tree-in-bud nodularity. Consider follow-up chest CT in 3-6 months. 3. Additional smaller pulmonary nodules are stable, below size threshold for accurate FDG assessment. 4. Low-level FDG uptake at nonenlarged mediastinal lymph nodes and bilateral enma is favored benign reactive versus granulomatous.
== END 2024-10-07 09:18 | disposition home or self-care (01) ==
LOC: RAD 09:18
PROVIDERS: PCP Nurse Practitioner Family; Visit Provider Nurse Practitioner Family
DX: R91.1 Solitary pulmonary nodule (principal); J98.4 Other disorders of lung; M47.891 Other spondylosis, occipito-atlanto-axial region; M54.16 Radiculopathy, lumbar region; G89.29 Other chronic pain; M51.372 Other intervertebral disc degeneration, lumbosacral region with discogenic back pain and lower extremity pain
CPT/HCPCS: 78815; 99214; A9552

== ENCOUNTER → 2024-11-30 13:42 | Outpatient (BNVA) | payer MEDICARE, SELFPAY | PROVIDERS: PCP Nurse Practitioner Family; Visit Provider Anesthesiology Pain Medicine | DX: M54.16 Radiculopathy, lumbar region (principal) | CPT/HCPCS: 64483; 64484; J1100; J3490; J9999 ==

== ENCOUNTER → 2024-12-13 14:00 | Outpatient (BNVA) | payer MEDICARE, SELFPAY | PROVIDERS: PCP Nurse Practitioner Family; Visit Provider Anesthesiology Pain Medicine | DX: M54.16 Radiculopathy, lumbar region (principal) | CPT/HCPCS: 64483; 64484; J1100; J3490; J9999 ==

== ENCOUNTER → 2024-12-27 09:27 | Outpatient (BNVA) | payer MEDICARE, SELFPAY | PROVIDERS: PCP Nurse Practitioner Family; Visit Provider Nurse Practitioner Family | DX: M54.16 Radiculopathy, lumbar region (principal); G89.29 Other chronic pain | CPT/HCPCS: 99214 ==

== ENCOUNTER → 2024-12-28 09:43 | Outpatient (BNVA) | payer MEDICARE, SELFPAY | PROVIDERS: PCP Nurse Practitioner Family; Visit Provider Internal Medicine Rheumatology | DX: M06.09 Rheumatoid arthritis without rheumatoid factor, multiple sites (principal); Z79.899 Other long term (current) drug therapy; Z71.85 Encounter for immunization safety counseling; M81.0 Age-related osteoporosis without current pathological fracture; M47.812 Spondylosis without myelopathy or radiculopathy, cervical region; M47.816 Spondylosis without myelopathy or radiculopathy, lumbar region; K21.9 Gastro-esophageal reflux disease without esophagitis; J44.9 Chronic obstructive pulmonary disease, unspecified; Z13.820 Encounter for screening for osteoporosis | CPT/HCPCS: 99214 ==

== ENCOUNTER → 2025-01-09 12:33 | Outpatient (BNVA) | payer MEDICARE, SELFPAY | PROVIDERS: PCP Nurse Practitioner Family; Visit Provider Internal Medicine | DX: I49.3 Ventricular premature depolarization (principal); E78.2 Mixed hyperlipidemia; I10 Essential (primary) hypertension | CPT/HCPCS: 99213 ==